=== PATIENT | male | born 1985 | race African-American/Black ===

== ENCOUNTER 2020-10-06 10:30 | Emergency (ER) | payer MEDICAID, OTHER ==
[~2020-10-06] VITALS: Ht 170.2 cm; Wt 86.2 kg
[2020-10-06 11:49] VITALS: BP 148/95
== END 2020-10-06 12:34 | disposition home or self-care (01) ==
LOC: ER 10:30
DX: R21 Rash and other nonspecific skin eruption (principal)

== ENCOUNTER 2021-06-07 23:55 | Emergency (ER) | payer MEDICAID ==
[~2021-06-07] VITALS: Ht 170.2 cm; Wt 84.8 kg
[2021-06-07 23:55] VITALS: BP 114/87
[2021-06-08] MEDS ORDERED: HYDR-4902 PO ×3 (02:10→16:36)
[2021-06-08] MEDS ORDERED: HYDROcodone-ACET 5/325MG TAB PO ONE (02:15)
== END 2021-06-08 02:20 | disposition home or self-care (01) ==
LOC: ER 06-08 00:03
DX: G89.29 Other chronic pain (principal); M54.6 Pain in thoracic spine; Z79.899 Other long term (current) drug therapy

== ENCOUNTER 2021-06-18 05:52 | Emergency (ER) | payer MEDICAID ==
[~2021-06-18] VITALS: Ht 170.2 cm; Wt 83.9 kg
[~2021-06-18 05:52] MED LIST: HYDR-4902 PO
[2021-06-18 06:48] VITALS: BP 120/72
[2021-06-18] MEDS ORDERED: KETOROLAC TROMETH 60MG/2ML VIAL IM ONE (07:00)
== END 2021-06-18 07:05 | disposition home or self-care (01) ==
LOC: ER 05:52
DX: G89.29 Other chronic pain (principal); M54.6 Pain in thoracic spine; Z79.899 Other long term (current) drug therapy
CPT/HCPCS: 96372; 99283; J1885

== ENCOUNTER 2022-04-11 13:21 | Emergency (ER) | payer MEDICAID, OTHER ==
[~2022-04-11] VITALS: Ht 170.2 cm; Wt 88.6 kg
[2022-04-11 17:40] VITALS: BP 159/99
[2022-04-11] MEDS ORDERED: KETOROLAC TROMETH 30 MG/ML 1ML VIAL IM ONE (18:15)
[2022-04-11] MEDS ORDERED: MAGNESIUM CITRATE SOLUTION 300 ML BTL PO ONE (18:15)
[2022-04-11] MEDS ORDERED: LACTULOSE 20Gm/30ML SOLN PO ONE (18:45)
[2022-04-11] MEDS ORDERED: FLEET MINERAL OIL ENEMA 133 ML PR ONE (19:00)
[2022-04-11] MEDS ORDERED: MAGNSOL PO (19:17)
[2022-04-11] MEDS ORDERED: POLY33504 PO (19:20)
== END 2022-04-11 21:20 | disposition home or self-care (01) ==
LOC: ER 13:21
DX: K59.00 Constipation, unspecified (principal)
CPT/HCPCS: 74018; 96372; 99283; J1885